=== PATIENT | female | born 1995 | race Caucasian/White ===

== ENCOUNTER 2016-07-28 19:52 | Emergency (ER) | payer OTHER ==
[2016-07-28 20:51] LABS: HEMOGLOBIN 14.5 gm/dl (12.3-15.3); RED BLOOD COUNT 4.71 M/UL (4.00-5.10); WHITE BLOOD COUNT 6.9 K/UL (4.5-11.0)
[2016-07-28 21:11] LABS: BUN/CREATININE RATIO 20 (0-10)
== END 2016-07-28 23:55 | disposition home or self-care (01) ==
LOC: ER1 19:52
PROVIDERS: Emergency Medicine
DX: R07.81 Pleurodynia (principal); E87.6 Hypokalemia; Z88.0 Allergy status to penicillin
CPT/HCPCS: 36415; 71010; 71250; 80053; 82550; 82553; 83874; 84484; 84703; 85025; 85379; 96360; 96372; 99285; J1885